=== PATIENT | male | born 1980 ===

== ENCOUNTER → 2021-03-30 10:24 | Outpatient (CLI) | payer BC, SELFPAY ==
[2021-03-31 08:30] LABS: COVID19 Sendout Not Detected (Not Detect)
== END ==
PROVIDERS: Referring Provider Nurse Practitioner Family; Visit Provider Nurse Practitioner Family
DX: Z20.822 Contact with and (suspected) exposure to COVID-19 (principal)
CPT/HCPCS: 87635

== ENCOUNTER → 2021-06-20 12:06 | Outpatient (CLI) | payer BC, OTHER, SELFPAY ==
[2021-06-20 12:33] LABS: COVID19 -Nasal RAPID POSITIVE (Negative)
== END ==
PROVIDERS: Visit Provider Nurse Practitioner Family
DX: U07.1 COVID-19 (principal); Z20.822 Contact with and (suspected) exposure to COVID-19; J31.2 Chronic pharyngitis
CPT/HCPCS: 87070; 87635

== ENCOUNTER → 2022-06-29 09:06 | Outpatient (CLI) | payer OTHER, SELFPAY ==
--- NOTE | 2022-06-29 09:09 | DI.RAD.S_ITS ---
PROCEDURE: XR WRIST LT MIN 3V INDICATIONS: Left wrist pain TECHNIQUE: 3 views of the wrist were acquired. COMPARISON: None. FINDINGS: Bones: No fractures or dislocations. No suspicious bony lesions. Scaphoid view: Not requested Soft tissues: No suspicious soft tissue calcifications. IMPRESSION: No acute fracture. No osseous lesion. If symptoms and/or clinical suspicion for pathology persist, further assessment with repeat, or advanced imaging (e.g., CT, MRI, or bone scan) may be helpful for further assessment. Dictated by: Yumiko Blair M.D. on 06/29/2022 at 11:34 Transcribed by: EBEN on 06/29/2022 at 11:36 Approved by: Yumiko Blair M.D. on 06/29/2022 at 16:30
== END ==
PROVIDERS: Referring Provider Nurse Practitioner Family; Visit Provider Nurse Practitioner Family
DX: S66.912A Strain of unspecified muscle, fascia and tendon at wrist and hand level, left hand, initial encounter (principal); X58.XXXA Exposure to other specified factors, initial encounter
CPT/HCPCS: 73110

== ENCOUNTER → 2024-09-18 08:36 | Outpatient (CLI) | payer BC, OTHER, SELFPAY ==
[2024-09-18 09:26] LABS: COVID-19 CEPHEID 4-PLEX PCR Negative (Negative); Influenza A - CEPHEID Flu A NEGATIVE (NEGATIVE); Influenza B - CEPHEID Flu B NEGATIVE (NEGATIVE); Respiratory Syncytial Virus Negative (Negative)
== END ==
PROVIDERS: Visit Provider Nurse Practitioner Family
DX: J02.9 Acute pharyngitis, unspecified (principal); R05.1 Acute cough
CPT/HCPCS: 0241U; 87070